=== PATIENT | male | born 1955 | race African-American/Black ===

== ENCOUNTER 2016-12-09 14:18 | Emergency (ER) | payer OTHER ==
[2016-12-09] MEDS ORDERED: ANTIVERT PO ONE (14:54)
[2016-12-09] MEDS ORDERED: ZOFRAN IM ONE (15:41)
[2016-12-09] MEDS ORDERED: MORPHINE IM ONE (15:41)
--- NOTE | 2016-12-09 16:38 | Diag Imaging Result Document ---
PROCEDURE NAME: HEAD/C-SPINE W/O CONTRAST - 12/09/[address]: COMPARISON: 10/11/2016. FINDINGS: The ventricles and sulci are normal in size and contour. There is no mass, hemorrhage, or evidence of acute ischemia. The bony calvaria is intact. The visualized paranasal sinuses and mastoid air cells are clear. IMPRESSION: Negative head CT. CT CERVICAL SPINE: COMPARISON: 10/11/2016. FINDINGS: There is stable very mild degenerative disk disease at C5-6 and C6-7. No fracture or subluxation. IMPRESSION: No acute disease or change from prior.
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
[2016-12-09 17:21] VITALS: BP 137/78
== END 2016-12-09 17:21 | disposition home or self-care (01) ==
LOC: ED 14:18
DX: R42 Dizziness and giddiness (principal); M54.2 Cervicalgia; M54.9 Dorsalgia, unspecified; R51 Headache; R11.2 Nausea with vomiting, unspecified; R55 Syncope and collapse; M79.1 Myalgia; I50.9 Heart failure, unspecified; E78.5 Hyperlipidemia, unspecified; I12.9 Hypertensive chronic kidney disease with stage 1 through stage 4 chronic kidney disease, or unspecified chronic kidney disease; N18.3 Chronic kidney disease, stage 3 (moderate); M19.90 Unspecified osteoarthritis, unspecified site; F41.9 Anxiety disorder, unspecified; F32.9 Major depressive disorder, single episode, unspecified; Z79.82 Long term (current) use of aspirin; Z79.899 Other long term (current) drug therapy; V49.40XA Driver injured in collision with unspecified motor vehicles in traffic accident, initial encounter
CPT/HCPCS: 70450; 72125; J2270; J2405